=== PATIENT | male | born 2000 | race Two or more races ===

== ENCOUNTER 2021-01-28 10:24 | Emergency (ER) | payer OTHER ==
[~2021-01-28] VITALS: Ht 182.9 cm; Wt 104.3 kg
[2021-01-28 12:37] VITALS: BP 124/55
[2021-01-28] MEDS ORDERED: LIDOCAINE 1% HCL (LOCAL ANESTH.) INJ 20ML MDV IJ ONE (12:45)
== END 2021-01-28 13:30 | disposition home or self-care (01) ==
LOC: ER 10:24
DX: S61.411A Laceration without foreign body of right hand, initial encounter (principal); W18.00XA Striking against unspecified object with subsequent fall, initial encounter; Y93.89 Activity, other specified; Y92.69 Other specified industrial and construction area as the place of occurrence of the external cause; Y99.8 Other external cause status
CPT/HCPCS: 12002

== ENCOUNTER 2021-02-03 08:33 | Emergency (ER) | payer OTHER ==
[~2021-02-03] VITALS: Ht 182.9 cm; Wt 104.3 kg
[2021-02-03 10:15] VITALS: BP 107/59
== END 2021-02-03 10:57 | disposition home or self-care (01) ==
LOC: ER 08:33
DX: S61.411D Laceration without foreign body of right hand, subsequent encounter (principal); X58.XXXD Exposure to other specified factors, subsequent encounter